=== PATIENT | male | born 1940 | race Caucasian/White ===

== ENCOUNTER 2018-01-24 12:04 | Emergency (ER) | payer MEDICAID ==
[~2018-01-24] VITALS: Ht 172.7 cm; Wt 84.1 kg
[2018-01-24] MEDS ORDERED: FERR-89 PO (12:21)
[2018-01-24] MEDS ORDERED: WARF5 PO (12:21)
[2018-01-24] MEDS ORDERED: SPIR25 PO (12:21)
[2018-01-24] MEDS ORDERED: FURO40 PO (12:21)
[2018-01-24] MEDS ORDERED: ATOR10TA84 PO (12:21)
[2018-01-24] MEDS ORDERED: METO25 PO (12:21)
[2018-01-24] MEDS ORDERED: WARF1 PO (12:21)
[2018-01-24] MEDS ORDERED: CARV3 PO (12:21)
[2018-01-24] MEDS ORDERED: TAMS0.4C32 PO (12:21)
[2018-01-24 13:27] LABS: BASOPHILS % (AUTO) 1.2 % (0.0-2.0); EOSINOPHILS % (AUTO) 4.4 % (1.0-6.0); HEMATOCRIT 36.4 % (41-53); HEMOGLOBIN 10.8 g/dL (13.5-17.5); LYMPHOCYTES # (AUTO) 1.3 K/uL (1.0-4.8); LYMPHOCYTES % (AUTO) 14.2 % (22.0-44.0); MEAN CORPUSCULAR HEMOGLOBIN 23.7 pg (26.0-34.0); MEAN CORPUSCULAR HGB CONC 29.8 G/dL (31.0-37.0); MEAN CORPUSCULAR VOLUME 80 fL (80-100); MONOCYTES % (AUTO) 11.4 % (2.0-9.0); NEUTROPHILS # (AUTO) 6.2 K/uL (1.8-7.7); NEUTROPHILS % (AUTO) 68.8 % (40.0-70.0); PLATELET COUNT (AUTO) 216 K/uL (150-450); RED BLOOD CELL COUNT(AUTO) 4.57 MIL/uL (4.50-5.90); RED CELL DISTRIBUTION WIDTH 14.3 % (11.5-14.5)
[2018-01-24 13:37] LABS: CREATININE 1.34 mg/dL (0.60-1.30); POTASSIUM 5.5 mmol/L (3.5-5.1)
[2018-01-24 13:38] LABS: PROTHROMBIN TIME 10.7 SEC (9.4-11.6)
[2018-01-24 14:04] LABS: ALBUMIN 3.2 g/dL (3.4-5.0); BILIRUBIN,TOTAL 0.8 mg/dL (0.1-1.0); TOTAL PROTEIN, SERUM 7.4 g/dL (6.4-8.2)
[2018-01-24 14:05] LABS: APPEARANCE,URINE CLEAR (CLEAR); BILIRUBIN,URINE NEGATIVE (NEGATIVE); GLUCOSE, URINE (UA) NEGATIVE (NEGATIVE); KETONES,URINE NEGATIVE (NEGATIVE); LEUKOCYTE ESTERASE ,URINE NEGATIVE (NEGATIVE); NITRATE,URINE NEGATIVE (NEGATIVE); OCCULT BLOOD,URINE NEGATIVE (NEGATIVE); PROTEIN,URINE NEGATIVE (NEGATIVE); UROBILINOGEN,URINE 0.2 mg/dL (<=1.0)
[2018-01-24 15:31] VITALS: BP 131/69
== END 2018-01-24 15:44 | disposition home or self-care (01) ==
LOC: EMS 12:07
DX: E87.5 Hyperkalemia (principal); I48.91 Unspecified atrial fibrillation; N28.9 Disorder of kidney and ureter, unspecified; E11.9 Type 2 diabetes mellitus without complications; I10 Essential (primary) hypertension; Z79.01 Long term (current) use of anticoagulants; Z79.899 Other long term (current) drug therapy
CPT/HCPCS: 93005